=== PATIENT | male | born 1950 | race Caucasian/White ===

== ENCOUNTER 2023-08-29 13:08 | Outpatient (AMB) | payer MEDICARE, SELFPAY ==
--- NOTE | 2023-08-29 13:43 | A.OFFPC_ITS ---
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: No Allergies No Known Allergies Allergy (Verified 08/29/23 13:44) Medication List - Last Reconciled 08/29/23 by Cristal Lyn MD glucosamine HCl 500 mg PO DAILY glucosamine-chondroitin 250-200 mg (Osteo Bi-Flex) 2 tabs PO TID meloxicam 15 mg PO DAILY multivitamin 1 tab PO DAILY simvastatin 40 mg PO BEDTIME tamsulosin 0.8 mg PO DAILY Tobacco use date assessed: 08/29/23 Fall risk assessment: No Falls in past year Last assessed Fall Risk: 08/29/23 Dental Screening Dental Screen Date: 08/29/23 Did you have a dental visit in the last 12 months?: Yes Did you have a dental problem in the last 6 months where you did not have access to dental care?: No Was dental information given to patient?: Patient has dentist HPI HPI Comments History of Present Illness Details This is a 73 year old male with past medical history of osteoarthritis, BPH, hyperlipidemia presenting to reestablish care BPH is stable on tamsulosin CV: on simvastatin. Denies excessive/new myalgia or joint pain Msk: stable on meloxicam, glucosamine PFSH Medical History (Updated 08/29/23 @ 15:01 by Cristal Lyn MD) Hernia Surgical History (Updated 08/29/23 @ 13:55 by Maranda Tony CMA) History of appendectomy Family History (Updated 08/29/23 @ 13:57 by Maranda Tony CMA) Father Leukemia Mother Septic shock Brother Diabetes Heart attack Lung cancer Social History Housing: House Patient Tobacco Use Status: Never used Tobacco e-Cigarette/Vaping Use: Never Used Second Hand Smoke Exposure: No service: Yes Current occupational status: retired Cognitive needs: No Hearing needs: Yes Vision needs: Yes Questionnaire PHQ-9 Over the last 2 weeks, how often have you been bothered by any of the following problems? 1. Little interest or pleasure in doing things: not at all 2. Feeling down, depressed, or hopeless: not at all 3. Trouble falling or staying asleep, or sleeping too much: not at all 4. Feeling tired or having little energy: not at all 5. Poor appetite or overeating: not at all 6. Feeling bad about yourself - or that you are a failure or have let yourself or your family down: not at all 7. Trouble concentrating on things, such as reading the newspaper or watching television: not at all 8. Moving or speaking so slowly that other people could have noticed. Or the opposite - being so fidgety or restless that you have been moving around a lot more than usual: not at all 9. Thoughts that you would be better off or of hurting yourself in some way: not at all Total score: 0 Depression Screening Interpretation: Negative (noted) Depression Screening Done: Yes [id number] - PHQ-9 Billing: Yes Source: Developed by Drs. Sajan Irwin, Cynthia Flores, Favio Holman and colleagues, with an educational esteban from [employer] Thrive Questionnaire Date Thrive assessed: 08/29/23 I am a: Patient What is your living situation today?: I have a steady place to live Within the past 12 months, did the food you bought not last and you didn't have the money to get more?: Never true Within the past 12 months, did you worry whether your food would run out before you got money to buy more?: Never true Do you have trouble paying for medicines?: No Do you have trouble getting transportation to medical appointments?: No Do you have trouble paying your heating and electricity bill?: No Do you have trouble taking care of your child, family member or friend?: No Do you have trouble with day-to-day activities such as bathing, preparing meals, shopping, managing finances, etc.?: No Are you currently unemployed and looking for a job?: No Are you interested in more education?: No Please select the resources that you would like help with: None Currently or been in a relationship where the following occur: no concerns reported THRIVE Score: 0 AUDIT C Alcohol Use Questionnaire (AUDIT-C) 1. How often do you have a drink containing alcohol?: Monthly or less 2. How many drinks containing alcohol do you have on a typical day when you are drinking?: 1 or 2 3. How often do you have six or more drinks on one occasion?: Never Total Score: 1 MARGARITO-7 AMB Questionnaire MARGARITO-7 Date MARGARITO - 7 assessed: 08/29/23 Feeling nervous, anxious, or on edge: 0 = Not at all Not being able to stop or control worryin = Not at all Worrying too much about different things: 0 = Not at all Trouble relaxin = Not at all Being so restless that it is hard to sit still: 0 = Not at all Becoming easily annoyed or irritable: 0 = Not at all Feeling afraid as if something awful might happen: 0 = Not at all Total MARGARITO-7 score (0-4 normal; 5-9 mild; 10-14 moderate; 15-21 severe): 0 Source: Developed by Drs. Sajan Irwin, Cynthia Flores, Favio Holman and colleagues, with an educational esteban from [employer] MARGARITO-7 Assessment Billing MARGARITO-7 Assessment Tool: MARGARITO-7 Assessment 65586 Review of Systems Const Details: ROS CONSTITUTIONAL: Denies weight loss, fever and chills. HEENT: Denies changes in vision and hearing. RESPIRATORY: Denies SOB and cough. CV: Denies palpitations and CP GI: Denies abdominal pain, nausea, vomiting and diarrhea. : Denies dysuria and urinary frequency. MSK: Denies new myalgia and joint pain. SKIN: Denies rash and pruritus. NEUROLOGICAL: Denies headache and syncope. PSYCHIATRIC: Denies recent changes in mood. Denies anxiety and depression. Physical exam (Primary Care) Vital Signs: Last Vital Signs Temp 98.2 F 08/29/23 13:49 Pulse 77 08/29/23 13:49 Resp 16 08/29/23 13:49 BP 138/66 08/29/23 13:49 Pulse Ox 97 08/29/23 13:49 Oxygen Delivery Method Room Air 08/29/23 13:49 PHYSICAL EXAM: GENERAL: Alert and oriented x 3. No acute distress. Well-nourished. EYES: EOMI. Anicteric. HENT: Moist mucous membranes. No scleral icterus. No cervical lymphadenopathy. LUNGS: Clear to auscultation bilaterally. No accessory muscle use. CARDIOVASCULAR: Regular rate and rhythm. No murmur. No JVD. ABDOMEN: Soft, non-tender and non-distended. No palpable masses. EXTREMITIES: No edema. Non-tender.?SKIN: No rashes or lesions. Warm. NEUROLOGIC: No focal neurological deficits. CN II-XII grossly intact PSYCHIATRIC: Cooperative. Appropriate mood and affect. BMI result Body Mass Index 28.1 Tobacco/Smoking Status: Tobacco use Status Tobacco use date assessed 08/29/23 08/29/23 13:54 Patient Tobacco Use Status Never used Tobacco 08/29/23 13:54 Tobacco use type 08/29/23 13:54 e-Cigarette/Vaping Use Never Used 08/29/23 13:54 PHQ-9: PHQ-9 Score PHQ-9: Total score 0 08/29/23 13:58 Depression Screening Interpretation: Negative (noted) Thrive Assessment: Date of Thrive Assessment Date Thrive assessed 08/29/23 08/29/23 13:58 Currently or been in a relationship where the following occur: no concerns reported Assessment and Plan Assessment & Plan (1) Hyperlipidemia: Comment: Check labs at [facility] in december. tolerating medication. low cholesterol diet. Has increased exercise Code(s): E78.5 - Hyperlipidemia, unspecified Qualifiers: Hyperlipidemia type: mixed hyperlipidemia Qualified Code(s): E78.2 - Mixed hyperlipidemia (2) Benign prostatic hyperplasia: Comment: stable on tamsulosin Code(s): N40.0 - Benign prostatic hyperplasia without lower urinary tract symptoms Qualifiers: Lower urinary tract symptom presence: unspecified whether lower urinary tract symptoms present Qualified Code(s): N40.0 - Benign prostatic hyperplasia without lower urinary tract symptoms (3) Osteoarthritis: Comment: stable on meloxicam. monitor kidney function Code(s): M19.90 - Unspecified osteoarthritis, unspecified site Qualifiers: Osteoarthritis location: multiple joints Osteoarthritis type: primary Qualified Code(s): M15.9 - Polyosteoarthritis, unspecified (4) Chronic low back pain: Comment: xr ordered Code(s): M54.50 - Low back pain, unspecified; G89.29 - Other chronic pain Qualifiers: Back pain laterality: midline Sciatica presence: with sciatica Sciatica laterality: bilateral sciatica Qualified Code(s): M54.41 - Lumbago with sciatica, right side; M54.42 - Lumbago with sciatica, left side; G89.29 - Other chronic pain Orders: Orders XR lumbar spine 2-3V Today G89.29 - Other chronic pain, M54.50 - Low back pain, unspecified Medications: New simvastatin 40 mg PO BEDTIME 90 tabs 3RF 90 days meloxicam 15 mg PO DAILY 90 tabs 3RF 90 days tamsulosin 0.8 mg (2 x 0.4 mg) PO DAILY 180 caps 3RF 90 days M19.90 - Unspecified osteoarthritis, unspecified site, N40.0 - Benign prostatic hyperplasia without lower urinary tract symptoms Coding Level of Care Code Est Pt Level 4 (51189) Complex EM visit Add On G2211 Diagnoses Mixed hyperlipidemia E78.2 Hyperlipidemia type: mixed hyperlipidemia Benign prostatic hyperplasia, unspecified whether lower urinary tract symptoms present N40.0 Lower urinary tract symptom presence: unspecified whether lower urinary tract symptoms present Primary osteoarthritis involving multiple joints M15.9 Osteoarthritis location: multiple joints Osteoarthritis type: primary Chronic midline low back pain with bilateral sciatica M54.41; M54.42; G89.29 Back pain laterality: midline Sciatica presence: with sciatica Sciatica laterality: bilateral sciatica Additional Codes MARGARITO-7 Assessment Billing - MARGARITO-7 Assessment Tool: MARGARITO-7 Assessment 36436 ([id number]) Time Spent (min) 35
[2023-08-29 13:49] VITALS: BP 138/66; PULSE 77; RESP 16; TEMP 36.8; O2SAT 97; BMI 28.1
== END 2023-08-29 16:20 | disposition home or self-care (01) ==
PROVIDERS: PCP Internal Medicine; Visit Provider Internal Medicine
DX: E78.2 Mixed hyperlipidemia (principal); N40.0 Benign prostatic hyperplasia without lower urinary tract symptoms; M15.9 Polyosteoarthritis, unspecified; M54.41 Lumbago with sciatica, right side; M54.42 Lumbago with sciatica, left side; G89.29 Other chronic pain
CPT/HCPCS: 99214; G2211

== ENCOUNTER 2024-05-21 08:16 | Outpatient (AMB) | payer MEDICARE, SELFPAY ==
--- NOTE | 2024-05-21 08:40 | A.OFFPC_ITS ---
Vital Signs 05/21/24 08:44 Height 5 ft 5 in Weight 171 lb 6 oz BMI 28.5 BP 102/62 Blood Pressure Location Lt brachial Position Sitting Pulse 91 Pulse Source Pulse Oximeter Pulse Oximetry (%) 99 Oxygen Delivery Method Room Air Intake Visit Reasons: annual physcial Intake Note: Physical. Requesting cream for dry, itchy skin. Refill on Tamsulosin and Simvastatin. Allergies No Known Allergies Allergy (Verified 05/21/24 08:40) Tobacco use date assessed: 08/29/23 Fall risk assessment: No Falls in past year Last assessed Fall Risk: 05/21/24 Dental Screening Dental Screen Date: 08/29/23 HPI HPI Comments History of Present Illness Details This is a 74 year old male with past medical history of osteoarthritis, BPH, hyperlipidemia presenting annual exam BPH is stable on tamsulosin. Saw urology in March. Had prostate exam CV: on simvastatin. Denies excessive/new myalgia or joint pain Msk: stable on meloxicam, glucosamine Due for labs Declines cologuard, colonoscopy Declines flu vaccination ROS CONSTITUTIONAL: Denies weight loss, fever and chills. HEENT: Denies changes in vision and hearing. RESPIRATORY: Denies SOB and cough. CV: Denies palpitations and CP GI: Denies abdominal pain, nausea, vomiting and diarrhea. : Denies dysuria and urinary frequency. MSK: Denies new myalgia and joint pain. SKIN: Denies rash and pruritus. NEUROLOGICAL: Denies headache PSYCHIATRIC: Denies recent changes in mood. PHYSICAL EXAM: GENERAL: Alert and oriented x 3. NAD EYES: EOMI. Anicteric. HENT: Moist mucous membranes. No scleral icterus. No cervical lymphadenopathy. LUNGS: Clear to auscultation bilaterally. CARDIOVASCULAR: Regular rate and rhythm. No murmur. No JVD. ABDOMEN: Soft, non-tender +bs EXTREMITIES: No edema. Non-tender. SKIN: No rashes or lesions. Warm. NEUROLOGIC: No focal neurological deficits. CN II-XII grossly intact PSYCHIATRIC: Cooperative. Appropriate mood and affect [facility] Medical History Hernia Surgical History History of appendectomy Family History Father Chronic lymphocytic leukemia Acute [place] Septic shock Mother Thyroid disease Stomach ulcer Diabetes Atherosclerosis Gangrene of foot Renal failure Brother Diabetes Heart attack Brother Lung cancer Paternal Grandfather No problems noted. Paternal Grandmother No problems noted. Social History Housing: House Alcohol intake: current Patient Tobacco Use Status: Never used Tobacco e-Cigarette/Vaping Use: Never Used Second Hand Smoke Exposure: No service: Yes Current occupational status: retired Cognitive needs: No Hearing needs: Yes Vision needs: Yes Questionnaire Thrive Questionnaire Date Thrive assessed: 05/14/24 I am a: Patient What is your living situation today?: I have a steady place to live Within the past 12 months, did the food you bought not last and you didn't have the money to get more?: Never true Within the past 12 months, did you worry whether your food would run out before you got money to buy more?: Never true Do you have trouble paying for medicines?: No Do you have trouble getting transportation to medical appointments?: No Do you have trouble paying your heating and electricity bill?: No Do you have trouble taking care of your child, family member or friend?: No Do you have trouble with day-to-day activities such as bathing, preparing meals, shopping, managing finances, etc.?: No Are you currently unemployed and looking for a job?: No Are you interested in more education?: No Currently or been in a relationship where the following occur: No concerns reported THRIVE Score: 0 AUDIT C Alcohol Use Questionnaire (AUDIT-C) 1. How often do you have a drink containing alcohol?: Never Total Score: 0 MARGARITO-7 AMB Questionnaire MARGARITO-7 Date MARGARITO - 7 assessed: 05/21/24 Feeling nervous, anxious, or on edge: 0 = Not at all Not being able to stop or control worryin = Not at all Worrying too much about different things: 0 = Not at all Trouble relaxin = Not at all Being so restless that it is hard to sit still: 0 = Not at all Becoming easily annoyed or irritable: 0 = Not at all Feeling afraid as if something awful might happen: 0 = Not at all Total MARGARITO-7 score (0-4 normal; 5-9 mild; 10-14 moderate; 15-21 severe): 0 Source: Developed by Drs. Sajan Irwin, Cynthia Flores, Favio Holman and colleagues, with an educational esteban from [employer]. MARGARITO-7 Assessment Billing MARGARITO-7 Assessment Tool: MARGARITO-7 Assessment [id number] Physical exam (Primary Care) Tobacco/Smoking Status: Tobacco use Status Tobacco use date assessed 08/29/23 05/21/24 08:43 Patient Tobacco Use Status Never used Tobacco 05/21/24 08:44 Tobacco use type 10/19/23 11:34 e-Cigarette/Vaping Use Never Used 05/21/24 08:44 Thrive Assessment: Date of Thrive Assessment Date Thrive assessed 05/14/24 05/21/24 08:43 Currently or been in a relationship where the following occur: No concerns reported Coding Level of Care Code Est Pt Prev Care >65y(73595) Diagnoses Physical exam Z00.00 Mixed hyperlipidemia E78.2 Hyperlipidemia type: mixed hyperlipidemia Benign prostatic hyperplasia, unspecified whether lower urinary tract symptoms present N40.0 Lower urinary tract symptom presence: unspecified whether lower urinary tract symptoms present Primary osteoarthritis involving multiple joints M15.9 Osteoarthritis location: multiple joints Osteoarthritis type: primary Additional Codes MARGARITO-7 Assessment Billing - MARGARITO-7 Assessment Tool: MARGARITO-7 Assessment 71154 ([id number]) Assessment & Plan Assessment & Plan (1) Physical exam: Code(s): Z00.00 - Encounter for general adult medical examination without abnormal findings Category: Medical Plan: 74 year old male presenting for annual. Preventive measures reviewed Chronic medication conditions (2) Hyperlipidemia: Code(s): E78.5 - Hyperlipidemia, unspecified Category: Medical Qualifiers: Hyperlipidemia type: mixed hyperlipidemia Qualified Code(s): E78.2 - Mixed hyperlipidemia Plan: Improved on statin therapy (3) Benign prostatic hyperplasia: Code(s): N40.0 - Benign prostatic hyperplasia without lower urinary tract symptoms Category: Medical Qualifiers: Lower urinary tract symptom presence: unspecified whether lower urinary tract symptoms present Qualified Code(s): N40.0 - Benign prostatic hyperplasia without lower urinary tract symptoms Plan: stable on flomax (4) Osteoarthritis: Code(s): M19.90 - Unspecified osteoarthritis, unspecified site Category: Medical Qualifiers: Osteoarthritis location: multiple joints Osteoarthritis type: primary Qualified Code(s): M15.9 - Polyosteoarthritis, unspecified Plan: stable on mobic Orders: Orders Complete Blood Count Man Dif Today E78.2 - Mixed hyperlipidemia, G89.29 - Other chronic pain, M15.9 - Polyosteoarthritis, unspecified, M54.41 - Lumbago with sciatica, right side, M54.42 - Lumbago with sciatica, left side, N40.0 - Benign prostatic hyperplasia without lower urinary tract symptoms Comprehensive Met. Panel Today E78.2 - Mixed hyperlipidemia, G89.29 - Other chronic pain, M15.9 - Polyosteoarthritis, unspecified, M54.41 - Lumbago with sciatica, right side, M54.42 - Lumbago with sciatica, left side, N40.0 - Benign prostatic hyperplasia without lower urinary tract symptoms Lipid Panel Today E78.2 - Mixed hyperlipidemia, G89.29 - Other chronic pain, M15.9 - Polyosteoarthritis, unspecified, M54.41 - Lumbago with sciatica, right side, M54.42 - Lumbago with sciatica, left side, N40.0 - Benign prostatic hyperplasia without lower urinary tract symptoms Prostate Specific Antigen Today E78.2 - Mixed hyperlipidemia, G89.29 - Other chronic pain, M15.9 - Polyosteoarthritis, unspecified, M54.41 - Lumbago with sciatica, right side, M54.42 - Lumbago with sciatica, left side, N40.0 - Benign prostatic hyperplasia without lower urinary tract symptoms Medications: New meloxicam 7.5 mg PO DAILY 90 tabs 3RF betamethasone dipropionate 0.05% 1 appl topical BID PRN 45 grams 3RF skin irritation Refilled tamsulosin 0.8 mg (2 x 0.4 mg) PO DAILY 90 days 180 caps 3RF M19.90 - Unspecified osteoarthritis, unspecified site, N40.0 - Benign prostatic hyperplas ia without lower urinary tract symptoms simvastatin 40 mg PO BEDTIME 90 days 90 tabs 3RF Discontinued meloxicam Discontinued Reason: Doctor's Order 15 mg PO DAILY 90 days 90 tabs 3RF
[2024-05-21 08:44] VITALS: BP 102/62; PULSE 91; O2SAT 99; BMI 28.5
== END 2024-05-21 09:13 | disposition home or self-care (01) ==
PROVIDERS: PCP Internal Medicine; Visit Provider Internal Medicine
DX: Z00.00 Encounter for general adult medical examination without abnormal findings (principal); E78.2 Mixed hyperlipidemia; N40.0 Benign prostatic hyperplasia without lower urinary tract symptoms; M15.9 Polyosteoarthritis, unspecified

== ENCOUNTER 2024-05-21 09:26 | Outpatient (REF) | payer MEDICARE, SELFPAY ==
[2024-05-21 11:22] LABS: Baso%MD 0.8 %; Hemoglobin 14.4 g/dl (14.0-18.0); IG%MD 0.4 %; Lymph%MD 17.8 %; Mean Corpuscular HGB Conc 32.7 g/dl (31.0-36.0); Mean Corpuscular Hemoglobin 28.1 pg (27.0-33.0); Mean Corpuscular Volume 85.9 fL (80.0-98.0); Mean Platelet Volume 10.1 fL (9.4-12.4); Mono%MD 8.2 %; Neut%MD 71.8 %; Platelet Count 229 X10*3/uL (160-400); Red Blood Count 5.12 X10*6/uL (4.60-5.80); Red Cell Distribution Width 13.1 % (11.0-16.0); White Blood Count 7.2 X10*3/uL (4.8-10.8)
[2024-05-21 12:15] LABS: Prostate Specific Antigen 2.41 ng/mL (<0.05-4.0)
[2024-05-21 12:27] LABS: Alanine Aminotransferase 19 U/L (0-40); Albumin Level 4.4 g/dL (3.5-5.0); Alkaline Phosphatase 69 U/L (39-117); Anion Gap 10 (12-20); Aspartate Amino Transferase 21 U/L (5-37); Bilirubin Total 0.5 mg/dL (0.0-1.0); Blood Urea Nitrogen 28 mg/dL (9-16); Calcium 10.6 mg/dL (8.4-10.2); Carbon Dioxide 26 mmol/L (22-29); Chloride 108 mmol/L (96-108); Cholesterol 168 mg/dL (<200); Estimated Glomerular Filt Rate > 60; Glucose Random 98 mg/dL (60-115); HDL Cholesterol 44 mg/dL (>40); LDL Cholesterol Calculated 94 mg/dL (<100); Potassium 4.1 mmol/L (3.3-5.1); Sodium 140 mmol/L (135-145); Total Protein 7.3 g/dL (6.5-8.0); Triglycerides 151 mg/dL (<150)
[2024-05-21 15:15] LABS: Band Neutrophils Percent 1 % (3-5); Eosinophils Absolute Manual 0.1 X10*3/uL (0.0-0.4); Eosinophils Percent Manual 1 % (0-4); Lymphocytes Absolute Manual 1.4 X10*3/uL (1.2-4.9); Lymphocytes Percent Manual 20 % (20-40); Monocytes Absolute Manual 0.4 X10*3/uL (0.1-1.2); Monocytes Percent Manual 5 % (2-11); Neutrophils Absolute Manual 5.3 X10*3/uL (2.0-8.3); Neutrophils Percent Manual 73 % (45-73)
[2024-05-21 15:17] LABS: Platelet Estimate NORMAL (NORMAL); Platelet Morphology Comment NORMAL; RBC Morphology NORMAL
== END 2024-05-21 09:27 | disposition home or self-care (01) ==
LOC: HO.WFDLDS 09:26
PROVIDERS: Visit Provider Internal Medicine
DX: Z00.00 Encounter for general adult medical examination without abnormal findings (principal); E78.2 Mixed hyperlipidemia; N40.0 Benign prostatic hyperplasia without lower urinary tract symptoms; M15.9 Polyosteoarthritis, unspecified; G89.29 Other chronic pain; M54.41 Lumbago with sciatica, right side; M54.42 Lumbago with sciatica, left side; Z79.899 Other long term (current) drug therapy; Z12.5 Encounter for screening for malignant neoplasm of prostate
CPT/HCPCS: 36415; 80053; 80061; 84153; 85007; 85027; 96127; 99397